=== PATIENT | female | born 1945 | race Caucasian/White ===

== ENCOUNTER 2018-02-05 13:15 | Emergency (ER) | payer MEDICARE, OTHER ==
[2018-02-05] MEDS ORDERED: ASPIRIN 81 MG CHEWABLE CTB ONE (13:38)
[2018-02-05] MEDS ORDERED: ASPIRIN 81 MG CHEWABLE CTB PO ONE (13:42)
[2018-02-05 13:55] LABS: BASOPHILS % (AUTO) 1 % (0-3); EOSINOPHILS % (AUTO) 2 % (0-9); HEMATOCRIT 40 % (35-47); HEMOGLOBIN 13.6 gm/dl (12.0-15.5); LYMPHOCYTES % (AUTO) 25.7 % (10-50); MEAN CORPUSCULAR HEMOGLOBIN 28.8 pg (27.0-32.0); MEAN CORPUSCULAR HGB CONC 34.4 gm/dl (32.0-36.0); MEAN CORPUSCULAR VOLUME 84 fL (81-99); MONOCYTES % (AUTO) 11.2 % (0-12); NEUTROPHILS % (AUTO) 59.7 % (37-80)
[2018-02-05 14:01] VITALS: TEMP 98.9
[2018-02-05 14:08] LABS: ALKALINE PHOSPHATASE 50 IU/L (46-116); ALT 27 IU/L (14-63); AST 17 IU/L (15-37); BILIRUBIN,TOTAL 0.4 mg/dl (0.2-1.0); BLOOD UREA NITROGEN 33 mg/dl (7-18); CALCIUM 9.2 mg/dl (8.5-10.1); CARBON DIOXIDE 26.1 mEq/L (21-32); CHLORIDE 106 mMol/L (98-107); CREATININE 0.97 mg/dl (0.60-1.00); GLOM FILT RATE 57 mL/min (>60); GLUCOSE 109 mg/dl (74-106); POTASSIUM 3.9 mMol/L (3.5-5.1); SODIUM 140 mMol/L (136-145); TOTAL PROTEIN 7.6 gm/dl (6.4-8.2); TROP I < 0.017 ng/ml (0.000-0.056)
[2018-02-05] MEDS ORDERED: SODIUM CHLORIDE 0.9% FLUSH 10 ML SOL IV PRN (14:13)
[2018-02-05 14:16] LABS: INR 0.96 (0.86-1.12)
[2018-02-05] MEDS ORDERED: KETOROLAC TROMETHAMINE 30 MG/ML SOL IV ONE (14:37)
[2018-02-05] MEDS ORDERED: KETOROLAC TROMETHAMINE 30 MG/ML SOL ONE (14:58)
[2018-02-05 18:04] VITALS: BP 164/79; PULSE 68; RESP 20; O2SAT 99
== END 2018-02-05 17:45 | disposition home or self-care (01) | DRG 206 ==
LOC: ED 13:15
DX: M94.0 Chondrocostal junction syndrome [Tietze] (principal); I10 Essential (primary) hypertension
CPT/HCPCS: 36415; 71045; 80053; 84484; 85025; 85378; 85610; 93005; 96374; 99284; 99285; J1885